=== PATIENT | female | born 1990 | race Caucasian/White ===

== ENCOUNTER 2025-06-10 11:18 | Emergency (ER) | payer BC, SELFPAY ==
--- OUTSIDE RECORDS SUMMARY | 2025-06-10 11:23 | XMS_ITS | Clinical Summary ---
Author Organization [facility] [place] Address [address] [place] [address] Phone Care Team Providers Care Sandwich Hand Name Role Phone Supa Hardin DO Primary Care Provider Allergies Active Allergy Reactions Criticality Noted Date Comments Methocarbamol Nausea and Vomiting Low 10/20/2013 Promethazine Other (See Comments) 12/12/2012 FATIGUE Medications norgestimate-et hinyl estradioL (Tri-Linyah) 0.18/0.215/0.25 mg-35 mcg (28) tablet TAKE ONE TABLET BY MOUTH DAILY 0 02/21/2019 Active traMADoL (ULTRAM) 50 mg tabletIndicatio ns:Chronic pelvic pain in female Take 1 Tablet (50 mg) by mouth every 8 hours as needed for Pain. 42 Tablet 0 03/07/2019 Active ondansetron (ZOFRAN ODT) 4 mg Tablet, Rapid Dissolve Take 1 Tablet (4 mg) by mouth every 8 hours as needed for Nausea/Emesis Dissolve tablet on top of tongue, then swallow with saliva. . 21 Tablet 0 03/07/2019 Active Active Problems Problem Noted Date Diagnosed Date History of ovarian cyst 03/06/2019 Current smoker on some days 03/06/2019 Low back pain 11/09/2014 Acne 12/14/2012 FHx: congenital heart disease 12/12/2012 Overview (03/31/2021): RON's brother S/P partial colectomy 01/21/2011 Overview (03/31/2021): Due to yersinia. Immunizations Immunization Administration Dates Next Due (ADACEL/BOOSTRIX)(10 YR UP) TDAP VACCINE, 0.5ML, IM 05/22/2013 (GARDASIL)(9-45 YRS) HUMAN PAPILLOMAVIRUS VACCINE, TYPES 6, 11, 16, 18, QUADRIVALENT (4VHPV), 3 DOSE, IM 01/08/2009,08/26/2008 (M-M-R II/PRIORIX)(12 MO UP) MEASLES, MUMPS AND RUBELLA VIRUS VACCINE, 0.5 ML IM/SUBCUT 01/01/1996,08/09/1993 Dt Dtp Dtap Vaccine 01/15/2006, 3,12/28/1992,11/09,09/14/1992 HIB, Unspecified Formulation 08/09/1993, 12/28/1992,11/09/1992,09/14 Hepatitis B Vaccine 10/16/1995,05/29/1995,1994 IPV/OPV 01/01/1996, 3,11/09/1992,09/14 Influenza A (H1N1) Vaccine PF IM 07/09/2009 Influenza Vaccine Split 3+ Yrs PF IM 06/12/2013, 07/09/2009 Rho (D) IMMUNE GLOBULIN 1,50 0 UNIT(300 MCG) INJECTION 04/15/2013,08/17/2009 Family History Medical History Relation Name Comments Healthy Father Hypertension Maternal Grandmother Healthy Mother Hypertension Mother Healthy Paternal Grandfather Healthy Paternal Grandmother Healthy Sister 1 Healthy Sister 2 Healthy Sister 3 Healthy Son Relation Name Status Comments Father Alive Maternal Grandfather Maternal Grandmother Alive Mother Alive Paternal Grandfather Alive Paternal Grandmother Alive Sister 1 Alive Sister 2 Alive Sister 3 Alive Son Alive Social History Tobacco Use Types Packs/Day Years Used Date Smoking Tobacco: Some Days Cigarettes Smokeless Tobacco: Never Alcohol Use Standard Drinks/Week Comments No 0 (1 standard drink = 0.6 oz pur e alcohol) Comments Unknown Sex and Gender Information Value Date Recorded Sex Assigned at Not on file Legal Sex Female 6:45 AM STOCK HANGER Gender Identity Not on file Sexual Orientation Not on file Last Filed Vital Signs Vital Sign Reading Time Taken Comments Blood Pressure 108/64 03/06/2019 12:57 PM CDT Pulse 108 03/06/2019 12:57 PM CDT Temperature 36.9 C (98.5 F) 03/06/2019 12:57 PM CDT Respiratory Rate 21 04/15/2018 3:01 PM CDT Oxygen Saturation - - Inhaled Oxygen Concentration - - Weight 72.3 kg (159 lb 6.4 oz) 03/06/2019 12:57 PM CDT Height 170.2 cm (5' 7 ) 03/06/2019 12:57 PM CDT Body Mass Index 24.97 03/06/2019 12:57 PM CDT Plan of Treatment Upcoming Encounters Date Type Department Care Team (Late st Contact Info) Description 06/25/2025 11:00 AM CDT Office Visit [facility]y [facility] [place] [address] [place] [address] Addison Grande DO [address] [place] [id number] Health Maintenance Due Date Last Done Comments HPV VACCINES (3 - 3-dose series) 04/02/2009 01/09/20 09, 08/26/2008 HPV/Cotest (21-29) 11/29/2020 11/30/2015 CERVICAL CANCER SCREENING 12/04/2021 HPV/Cotest (30-65) 12/04/2021 11/30/2015 PAP SMEAR 12/04/2021 11/30/2015 DTAP/TDAP/TD VACCINES (7 - T d or Tdap) 05/22/2023 05/22/2013, 01/15/2006, 08/09/1993, Additional history exists INFLUENZA VACCINE (#1) 2025 9, 06/12/2013, 07/09/2009 HEPATITIS B VACCINES Completed 10/16/1995, 05/29/1995, 04/03/1995 Procedures Procedure Name Priority Date/Time Associated Diagnosis Comments CERV/VAG CYTOPATH, THIN PREP W/RFLX HPV Routine 11/30/2015 10:31 AM STOCK HANGER from Last 3 Months or Most Recently Relevant to Health Maintenance Results * CERV/VAG CYTOPATH, THIN PREP W/RFLX HPV (11/30/2015 10:31 AM STOCK HANGER) CASE REPORT Gynecologic Cytology Report Case: [id number] Authorizing Provider: Gabriele Mcfadden MD Collected: 11/30/2015 1031 Ordering Location: [facility] Received: 12/01/2015 [facility] Screen: Jacqueline Alejandro Specimen: LB PAP TP W/RFLX HPV PROT, Endocervical 12/09/2015 8:45 AM CDT [facility] [employer] [facility] Hand Fabric Cutter Specimen Adequacy Satisfactory for evaluation, endocervical/ha sformation zone component present 12/09/2015 8:45 AM CDT [facility] Hand [employer] Cutter General Categorization Negative For Intraepithelial Lesion Or Malignancy 12/09/2015 8:45 AM T [facility] Hand Fabric Cutter Interpretation Negative For Intraepithelial Lesion Or Malignancy 12/09/2015 8:45 AM T [facility] [employer] [facility] Hand Fabric Cutter Educational Note 12/09/2015 8:45 AM T [facility] Endocervical (Endocervical) 11/30/2015 10:31 AM STOCK HANGER 12/01/2015 11:03 AM STOCK HANGER us Gabriele Mcfadden MD PATHOLOGY/CYTOLOGY ORDER PETE Final Result [facility] CLIA# [id number] [facility] [place] [address] [facility] [employer] [facility] CLIA # [id number] [id number] [place] [address] from Last 3 Months or Most Recently Relevant to Health Maintenance Care Teams Sandwich Hand Relationship Specialty Start Date End Date Supa Hardin DO [address] [place] [address] PCP - General Family Practice 03/06/19
--- OUTSIDE RECORDS SUMMARY | 2025-06-10 11:23 | XMS_ITS | Clinical Summary ---
Author Organization [facility] Address [address] [address] Phone Care Team Providers Care Forming Acid Dumper Name Role Phone Unavailable Primary Care Provider Unavailabl e Social History Tobacco Use Types Packs/Day Years Used Date Smoking Tobacco: Never Assessed Comments Unknown Sex and Gender Information Value Date Recorded Sex Assigned at Not on file Legal Sex Female 11:57 AM CDT Gender Identity Not on file Sexual Orientation Not on file Plan of Treatment Health Maintenance Due Date Last Done Comments MMR Vaccines (1 of 1 - Standard series) 12/04/1992 IPV Vaccines (4 of 4 - 4-dose series) 07/02/1996 01/01/1996, 12/28/1992, 11/09/1992, Additional history exists Varicella Vaccines (1 of 2 - 13+ 2-dose series) 12/04/2004 Depression Screening 12/04/2009 Social Drivers of Health (SDoH) 12/04/2009 Hepatitis B Vaccines (1 of 3 - 19+ 3-dose series) 12/04/2010 Pap Smear 12/04/2012 HPV Vaccines (1 - 3-dose SCDM series) 12/04/2018 Cervical Cancer Screening 12/04/2021 HPV/Cotest 12/04/2021 DTaP,Tdap,and Td Vaccines (7 - Td or Tdap) 05/22/2023 05/22/2013, 01/15/2006, 08/09/1993, Additional history exists COVID-19 Vaccine ( - season) 2025 Influenza Vaccine (#1) 2025 06/12/2013 Pneumococcal Vaccine: 50+ Years (1 of 1 - PCV) 12/04/2041 Zoster Vaccines (1 of 2) 12/04/2041 RSV Vaccines (1 - 1-dose 75+ series) 12/04/2066 HIB Vaccines Aged Out No longer eligi ble based on patient's age to complete this topic Hepatitis A Vaccines Aged Out No long er eligible based on patient's age to complete this topic Meningococcal B Vaccine Aged Out No l onger eligible based on patient's age to complete this topic Meningococcal Vaccine Aged Out No agustin jaqueline eligible based on patient's age to complete this topic Pneumococcal Vaccine Aged Out No long er eligible based on patient's age to complete this topic Rotavirus Vaccines Aged Out No longer eligible based on patient's age to complete this topic
[2025-06-10 11:25] VITALS: BP 114/74; PULSE 102; TEMP 36.8; O2SAT 100
--- NOTE | 2025-06-10 12:30 | ED_ITS ---
HPI - Female Genitourinary 2 General: Chief complaint: Urogenital-Female Stated complaint: cnnot urinate, abd pain Time Seen by Provider: 06/10/25 12:16 History of Present Illness: 34-year-old female presents emergency ro om complaining of abdominal pain difficulties urination. She had discomfort with urination for the last 2 days she seen her primary care doctor they told her she had blood in her urine but no signs of infection. She denies any fever sweats chills moderate flank pain she has had kidney stones in the past. Associated symptoms: Deny abdominal pain Related Data Home Medications ?Medication ?Instructions ?Recorded ?Confirmed alprazolam 0.25 mg tablet 0.25 mg PO BID 06/10/2505/25 escitalopram oxalate 10 mg tablet 10 mg PO DAILY 06/1006/10/25 tamsulosin 0.4 mg capsule 0.4 mg PO QPM 06/10/2506/10 tramadol 50 mg tablet 50 mg PO QID 06/10/25 Previous Rx's ?Medication ?Instructions ?Recorded ciprofloxacin HCl 500 mg tablet 500 mg PO BID #14 tabs 06/10/25 phenazopyridine 200 mg tablet 200 mg PO TID 6 doses #6 tabs 06/10/25 (Pyridium) Allergies Allergy/AdvReac Type Severity Reaction Status Date / Time No Known Allergies Allergy Verified 06/10/25 11:30 Review of Systems 2 Const: Denies: fever(s) or chills Card: Denies: chest pain Resp: Denies: dyspnea GI: Denies: abdominal pain : Denies: dysuria, urinary frequency or urinary urgency Musc: Denies: neck pain or back pain Skin/Breast: Denies: rash PFSH ED 2 PFSH: Medical History (Updated 06/10/25 @ 13:53 by Joselo Anderson DO) History of nephrolithiasis Social History Smoking and tobacco/nicotine status: never used tobacco/nicotine Alcohol intake: never Substance/Drug Use: never Physical Exam 2 Const: COMMON NORMALS: no acute distress GENERAL APPEARANCE: cooperative and comfortable ORIENTATION/CONSCIOUSNESS: Yes awake, Yes oriented to person, Yes oriented to place and Yes oriented to time HENMT: COMMON NORMALS: normocephalic, atraumatic and hearing grossly normal bilaterally HEAD & SCALP: normocephalic and atraumatic Resp: COMMON NORMALS: normal respiratory effort, No retractions, No use of accessory muscles and clear to auscultation bilaterally AUSCULTATION: clear to auscultation bilaterally Cardio: COMMON NORMALS: regular rate, regular rhythm and No murmurs present (Cardio) RATE: regular rate RHYTHM: regular rhythm GI: COMMON NORMALS: Soft to palpation and No hepatosplenomegaly present A USCULTATION: Yes normoactive bowel sounds PALPATION: Yes Soft to palpation, No Tenderness to palpation present (GI), No Guarding due to palpation present (GI) and Yes No hepatosplenomegaly present Extremity: COMMON NORMALS: normal to inspection, capillary refill normal, no clubbing, cyanosis or edema, no calf tenderness and no pedal edema Neuro: SENSORIUM/ORIENTATION: Yes oriented to person, Yes oriented to place and Yes oriented to time Skin: COMMON NORMALS: no rashes or lesions noted GENERAL SKIN EXAM: no rashes or lesions noted Course 2 Vital Signs: Vital signs: Vital Signs Temperature 98.3 F 06/10/25 11:25 Pulse Rate 85 06/10/25 14:26 Respiratory Rate 16 06/10/25 13:32 Blood Pressure 105/78 06/10/25 14:26 Pulse Oximetry 100 06/10/25 14:26 Oxygen Delivery Me thod Room Air 06/10/25 13:32 MDM - Female Medical Decision Making CT does not show any abscess or stones or obstructive uropathy. Patient has pyelonephritis urine showed greater than 100 white blood cells per high-power field white count is normal there is no leukocytosis mild anemia which is chronic. Renal function is normal. Patient given IV fluids also given dose of Pyridium here will discharge home with oral Pyridium he is given dose ceftriaxone here, start Cipro 500 twice daily for 7 days tomorrow return if has worsening symptoms or fever. Medical Records I reviewed the patient's medical records. Lab Data I reviewed the patient's lab results. 06/10/25 12:31 06/10/25 12:31 Radiology Impressions Abdomen/Pelvis CT 06/10/25 12:33 IMPRESSION: 1. No perinephric stranding or renal enlargement. No hydronephrosis. 2. Nonobstructing 2 mm calcification lower pole LEFT kidney. 3. No free fluid or adenopathy. 4. Postsurgical changes in the cecum and distal small bowel. No evidence for appendicitis. Appendix is not identified. Laboratory Results WBC 9.89 10^3/uL (3.29-11.43) 06/10/25 12:31 RBC 3.66 10^6/uL (3.85-5.65) L 06/10/25 12:31 Hgb 11.00 g/dL (11.27-16.99) L 06/10/25 12:31 Hct 33.3 % (36-47) L 06/10/25 12:31 MCV 91.0 fl (85-98) 06/10/25 12: MCH 30.1 pg (27-33) 06/10/25 12: MCHC 33.0 g/dL (30-55) 06/10/25 12: RDW 12.5 % (12.1-15.1) 06/10/25 12:31 Plt Count 370 10^3/cmm (157-399) 06/10/25 12:31 MPV 10.8 fL (7.4-10.4) H 06/10/25 12:31 Neut % (Auto) 66.7 % 06/10/25 12: Lymph % (Auto) 23.3 % 06/10/25 12:31 [place] % (Auto) 8.5 % 06/10/25 12: Eos % (Auto) 0.7 % 06/10/25 12:31 Baso % (Auto) 0.5 % 06/10/25 12:31 Neut # (Auto) 6.60 10^3/uL (1.8-7.7) 06/10/25 12:31 Lymph # (Auto) 2.3 10^3/uL (0.8-4.8) 06/10/25 12:31 [place] # (Auto) 0.8 10^3/uL (0.2-0.9) 06/10/25 12:31 Eos # (Auto) 0.1 10^3/uL (0.0-0.8) 06/10/25 12:31 Baso # (Auto) 0.1 10^3/uL (0.0-0.1) 06/10/25 12:31 Nucleated RBC % (auto) 0 % 06/10/25 12:31 Nucleated RBCs # 0.0 /100WBC 06/10/25 12:31 Sodium 140 mmol/L (136-145) 06/10/25 12:31 Potassium 3.9 mmol/L (3.5-5.1) 06/10/25 12:31 Chloride 108 mmol/L (98-107) H 06/10/25 12:31 Carbon Dioxide 22 mmol/L (22-29) 06/10/25 12:31 Anion Gap 13.9 (5-19) 06/10/25 12:31 BUN 9 mg/dL (6-20) 06/10/25 12:31 Creatinine 0.5 mg/dL (0.5-0.9) 06/10/25 12:31 GFR Calculation 142.1 mL/min (90-130) H 06/10/25 12:31 Glucose 86 mg/dL (65-115) 06/10/25 12:31 Calculated Osmolality 288 mOsm/kg (285-295) 06/10/25 12:31 Calcium 8.5 mg/dL (8.5-10.5) 06/10/25 12:31 Total Bilirubin 0.2 mg/dL (0.15-1.2) 06/10/25 12:31 AST 16 U/L (0-32) 06/10/25 12:31 ALT 8 U/L (0-33) 06/10/25 12:31 Alkaline Phosphatase 44 U/L (35-105) 06/10/25 12:31 Total Protein 6.5 g/dL (6.6-8.7) L 06/10/25 12:31 Albumin 4.0 g/dL (3.5-5.2) 06/10/25 12:31 Globulin 2.5 g/dL (1.3-4.6) 06/10/25 12:31 HCG, Qual Negative (Negative) 06/10/25 12:31 Urine Color Yellow (Yellow) 06/10/25 12:02 Urine Appearance Cloudy (CLEAR) A 06/10/25 12:02 Urine pH 8.5 (5-7) A 06/10/25 12:02 Ur Specific [place] 1.014 (1.005-1.030) 06/10/25 12:02 Urine Protein 1+ (Negative) A 06/10/25 12:02 Urine Glucose (UA) Negative (Normal) 06/10/25 12:02 Urine Ketones Trace (Negative) 06/10/25 12:02 Urine Blood Non-haemolysed trace (Negative) 06/10/25 12:02 Urine Nitrate Negative (Negative) 06/10/25 12:02 Urine Bilirubin Negative (Negative) 06/10/25 12:02 Urine Urobilinogen 1.0 mg/dL (Negative) 06/10/25 12:02 Ur Leukocyte Esterase 3+ (Negative) A 06/10/25 12:02 Urine RBC 6-10 /hpf (0-2) 06/10/25 12:02 Urine WBC >100 /hpf (0-5) H 06/10/25 12:02 Ur Squamous Epith Cells 0-5 /hpf (0-5) 06/10/25 12:02 Amorphous Sediment Not Reportable 06/10/25 12:02 Urine Bacteria None seen /hpf (NONE) 06/10/25 12:02 Hyaline Casts 1.65 /lpf 06/10/25 12:02 All radiology interpretation(s) finalized by discharge Discharge Plan Discharge Patient Disposition: Home Clinical Impression: Pyelonephritis Condition: Stable Prescriptions: New ciprofloxacin HCl 500 mg tablet 500 mg PO BID Qty: 14 0RF phenazopyridine [Pyridium] 200 mg tablet 200 mg PO TID Qty: 6 0RF No Action tramadol 50 mg tablet 50 mg PO QID alprazolam 0.25 mg tablet 0.25 mg PO BID tamsulosin 0.4 mg capsule 0.4 mg PO QPM escitalopram oxalate 10 mg tablet 10 mg PO DAILY Discharge Orders: Discharge ED (Routine); Ordered 06/10/25 Ordered By: Joselo Anderson Referrals: Sri Carlos [Primary Care Provider, Family Practice] Discharge Diet: Usual diet Discharge Activity: Increase activity as tolerated Patient Instructions: Opioid Safety, Pain Management, Patient Portal & [place] Instructions Activity Restrictions/Additional Instructions: Thank you for choosing [facility] for your healthcare needs today. It is very important that you follow up as instructed or that you return to the Emergency Department should you have concerns or if your condition changes or worsens in any way. Emergency department visits are focused on emergent conditions, in some cases you may require further evaluation on an outpatient basis. You were seen in the emergency room with abdominal discomfort. Evaluation shows you have a bladder infection that is ascending to the kidneys (this is called pyelonephritis). You are emptying your bladder but bladder spasms are making it feel like you need to urinate frequently. You are given antibiotics in the emergency room. To start the oral antibiotics tomorrow you are also given Pyridium to help with bladder spasms this will turn your urine a orange is red color this will stop once you have completed the medicines. (Please note that included in your discharge packet is information concerning opioid safety and pain management. This information is given to all patients were discharged from the ER regardless of their discharge diagnosis or the medicines they usually take or are prescribed.) Print Language: Greenlandic Coding Level of Care Code ED Rehabilitation Liaison for Nawaf Hatfield
[2025-06-10 12:32] VITALS: BP 111/76; PULSE 87; RESP 16; O2SAT 100
--- NOTE | 2025-06-10 12:33 | CT_ITS ---
WS: [id number] CT ABDOMEN AND PELVIS NONCONTRAST HISTORY: flank pain/hematuria TECHNIQUE: Imaging performed through the abdomen and pelvis. Coronal and sagittal reformats are submitted. All CT scans at [facility] use at least one of these dose optimization techniques: automated exposure control; mA and/or kV adjustment per patient size (includes targeted exams where dose is matched to clinical indication); or iterative reconstruction. DLP: 493.53 mGy.cm COMPARISON: None available. Lower thorax: Lung bases are clear. Visualized heart is normal. No hiatal hernia. Liver: Normal size liver. No mass or bile duct dilatation. Gallbladder: Normal gallbladder. No pericholecystic fluid or cholelithiasis. No gallbladder wall thickening. Pancreas: Normal size and attenuation. Normal pancreatic duct. No pancreatitis or mass. Spleen: Normal. Adrenal glands: Normal. No mass. Right kidney: Normal size kidney with no mass or hydronephrosis. Left kidney: Normal size kidney. 2 mm nonobstructing calcification lower pole. Aorta: Normal abdominal aorta, no aneurysm or atherosclerosis. No free fluid, intraperitoneal air or significant lymphadenopathy. GI tract: No GI tract obstruction. Postsurgical changes in the cecum. The appendix is not identified. No colitis. Abdominal wall: Small umbilical hernia contains fat only. Pelvis: Uterus is normal size and anteverted. Small follicle associated with the LEFT ovary 2.4 x 2.0 cm. Osseous structures: Sclerotic focus site in the proximal femurs consistent with bone islands. CT/CT kidney stone [id number] IMPRESSION: 1. No perinephric stranding or renal enlargement. No hydronephrosis. 2. Nonobstructing 2 mm calcification lower pole LEFT kidney. 3. No free fluid or adenopathy. 4. Postsurgical changes in the cecum and distal small bowel. No evidence for a ppendicitis. Appendix is not identified.
[2025-06-10 12:36] LABS: Glucose Urine UA Negative (Normal); Nitrate Urine Negative (Negative); Specific Gravity, Urine 1.014 (1.005-1.030)
[2025-06-10 12:41] LABS: Add Urine Microscopic? YES
[2025-06-10 12:48] LABS: Hematocrit 33.3 % (36-47); Hemoglobin 11.00 g/dL (11.27-16.99); Mean Corpuscular HGB Conc 33.0 g/dL (30-55); Mean Corpuscular Hemoglobin 30.1 pg (27-33); Mean Corpuscular Volume 91.0 fl (85-98); Nucleated Red Blood Cells % 0 %; Platelet Count 370 10^3/cmm (157-399); Red Blood Count 3.66 10^6/uL (3.85-5.65); White Blood Count 9.89 10^3/uL (3.29-11.43)
[2025-06-10 13:06] LABS: HCG, Serum Qual Negative (Negative)
[2025-06-10 13:12] LABS: Alanine Aminotransferase 8 U/L (0-33); Albumin Level 4.0 g/dL (3.5-5.2); Alkaline Phosphatase 44 U/L (35-105); Anion Gap 13.9 (5-19); Aspartate Amino Transferase 16 U/L (0-32); Blood Urea Nitrogen 9 mg/dL (6-20); Calcium 8.5 mg/dL (8.5-10.5); Carbon Dioxide 22 mmol/L (22-29); Chloride 108 mmol/L (98-107); Creatinine Clr Calc Pharmacy 165.6189; Globulin 2.5 g/dL (1.3-4.6); Glucose 86 mg/dL (65-115); Osmolality Calculated 288 mOsm/kg (285-295); Potassium 3.9 mmol/L (3.5-5.1); Sodium 140 mmol/L (136-145); Total Protein 6.5 g/dL (6.6-8.7)
[2025-06-10] MEDS: morphine 4 mg/mL SDV 1 mL IVP (13:17)
[2025-06-10] MEDS: ondansetron 2 mg/ML SDV 2 mL 4 MG IVP (13:17)
[2025-06-10] MEDS: cefTRIAXone 1,000 mg SDV 1000 MG IVP (13:17)
[2025-06-10 13:32] VITALS: BP 96/58; PULSE 83; RESP 16; O2SAT 100
[2025-06-10 14:26] VITALS: BP 105/78; PULSE 85; O2SAT 100
== END 2025-06-10 14:31 | disposition home or self-care (01) ==
PROVIDERS: Emergency Provider Family Medicine; PCP Nurse Practitioner Family
DX: N12 Tubulo-interstitial nephritis, not specified as acute or chronic (principal)
CPT/HCPCS: 36415; 51798; 74176; 80053; 81001; 84703; 85025; 87040; 87086; 96361; 96374; 96375; 99285; J0696; J2270; J2405; J7030; J9999